=== PATIENT | female | born 1960 | race Caucasian/White ===

== ENCOUNTER → 2018-11-30 | Outpatient (CLI) | payer BC ==
[2018-11-30 12:03] LABS: HCT 42.7 % (34.0-46.0); HGB 13.8 gm/dL (11.4-16.0); MCH 28.6 pg (25.0-35.0); MCHC 32.3 g/dL (31.0-37.0); MCV 88.5 fL (80.0-100.0); Mean Platelet Volume 6.7; Platelet Count 225 k/uL (150-450); RBC 4.82 m/uL (3.80-5.40); WBC 6.3 k/uL (3.8-10.6)
[2018-11-30 12:13] LABS: INR 0.9 (<1.2); Partial Thromboplastin Time 24.9 sec (22.0-30.0); Prothrombin Time 9.9 sec (9.0-12.0)
[2018-11-30 12:17] LABS: ALT 31 U/L (9-52); AST 17 U/L (14-36); Albumin 4.5 g/dL (3.5-5.0); Alkaline Phosphatase 69 U/L (38-126); Anion Gap 7 mmol/L; Blood Urea Nitrogen 21 mg/dL (7-17); Calcium 9.9 mg/dL (8.4-10.2); Carbon Dioxide 30 mmol/L (22-30); Chloride 105 mmol/L (98-107); Glucose 97 mg/dL (74-99); Potassium 4.5 mmol/L (3.5-5.1); Sodium 142 mmol/L (137-145); Total Bilirubin 0.5 mg/dL (0.2-1.3); Total Protein 7.4 g/dL (6.3-8.2)
[2018-11-30 12:29] LABS: Appearance,Urine Clear (Clear); Bilirubin,Urine Negative (Negative); Blood,Urine Negative (Negative); Color,Urine Light Yellow; Glucose,Urine (UA) Negative (Negative); Ketones,Urine Negative (Negative); Leukocyte Esterase,Urine Negative (Negative); Nitrite,Urine Negative (Negative); Protein,Urine Negative (Negative); Specific Gravity,Urine 1.008 (1.001-1.035); Urobilinogen,Urine <2.0 mg/dL (<2.0)
== END | disposition home or self-care (01) ==
LOC: LABPAT 11:18
PROVIDERS: ATTEND Orthopaedic Surgery
DX: Z01.812 Encounter for preprocedural laboratory examination (principal); M16.12 Unilateral primary osteoarthritis, left hip
CPT/HCPCS: 36415; 80053; 81003; 85027; 85610; 85730; 87070

== ENCOUNTER 2018-12-09 09:02 | Inpatient (IN) | payer BC ==
[2018-11-29 15:26] VITALS: BMI 33.3
[~2018-12-09 09:02] MED LIST: ACETAMINOPHEN TAB 500 MG TAB PO ONE; DEXAMETHASONE SOD PHOSPHATE 10 MG/ML 1 ML VIAL IV ONE; HYDROmorphone 0.5 MG/0.5 ML SYRINGE IVP PRN; MELOXICAM 7.5 MG TAB PO ONE; MORPHINE SULFATE 4 MG/ML SYRINGE IV PRN; ONDANSETRON 4 MG/2 ML VIAL IVP ONE; TRANEXAMIC ACID 1,000 MG in SODIUM CHLORIDE 0.9% 100 ML IVPB ONE; ceFAZolin IN SWFI 2 GM/20 ML SYRINGE IVP ONE
[2018-12-09] MEDS ORDERED: ROPIVACAINE 246.25 MG, EPINEPHrine 0.5 MG, KETOROLAC 30 MG, cloNIDine HCL/PF 80 MCG, WA... MISCELLANE ONE ×10 (12:11→12:46)
[2018-12-09] MEDS: LACTATED RINGERS 1,000 ML IV SCH ×3 (12:47→18:05)
[2018-12-09] MEDS ORDERED: LIDOCAINE 1% 20 ML VIAL (10MG/ML) FOR IV START INTRADERMA ONE (12:47)
[2018-12-09] MEDS ORDERED: HYDROcodone/APAP 5-325MG 1 EACH TAB PO PRN (12:48)
[2018-12-09] MEDS ORDERED: HYDROmorphone 1 MG/ML 1 ML SYRINGE IVP PRN (12:48)
[2018-12-09] MEDS ORDERED: ONDANSETRON 4 MG/2 ML VIAL IVP PRN (12:48)
[2018-12-09] MEDS ORDERED: hydrOXYzine PAMOATE 25 MG CAP PO PRN (12:48)
[2018-12-09] MEDS ORDERED: MAGNESIUM HYDROXIDE 2,400 MG/10 ML CUP PO PRN (12:48)
[2018-12-09] MEDS ORDERED: DEXAMETHASONE SOD PHOS (MDV) 100 MG/10 ML VIAL IV ONE (12:48)
[2018-12-09] MEDS ORDERED: NALOXONE 0.4 MG/ML 1 ML VIAL IV PRN (12:48)
[2018-12-09] MEDS ORDERED: ONDANSETRON 4 MG/2 ML VIAL IVP ONE (12:48)
[2018-12-09] MEDS ORDERED: HYDROmorphone 0.5 MG/0.5 ML SYRINGE IVP PRN ×2 (12:48)
[2018-12-09] MEDS ORDERED: DIAZEPAM 5 MG TAB PO PRN (12:48)
[2018-12-09] MEDS ORDERED: HEPARIN SODIUM,PORCINE 10,000 UNIT/ML 1 ML VIAL ONE (13:34)
[2018-12-09] MEDS ORDERED: ePHEDrine SULFATE/0.9% NACL/PF 50 MG/5 ML SYRINGE IV ONE (13:34)
[2018-12-09] MEDS ORDERED: PROPOFOL 10 MG/ML 20 ML VIAL IV ONE (13:34)
[2018-12-09] MEDS ORDERED: SODIUM CHLORIDE 0.9% IRRIG 1,000 ML BTL IRRIGATION ONE (13:34)
[2018-12-09] MEDS ORDERED: SODIUM CHLORIDE 0.9% 100 ML BAG ONE (13:34)
[2018-12-09] MEDS ORDERED: PHENYLEPHRINE-0.9% NACL SYG 1 MG/10 ML SYRINGE ONE (13:34)
[2018-12-09] MEDS ORDERED: TRANEXAMIC ACID 1,000 MG/10 ML VIAL ONE (13:34)
[2018-12-09] MEDS ORDERED: LACTATED RINGERS 1,000 ML IV ONE (14:26)
[2018-12-09] MEDS ORDERED: ceFAZolin 3,000 MG in SODIUM CHLORIDE 0.9% IRRIGATIO 3,000 ML IRRIGATION ONE (14:26)
--- NOTE | 2018-12-09 15:09 | P.OP ---
Date of Procedure: 12/09/18 Preoperative Diagnosis: Severe osteoarthritis left hip Postoperative Diagnosis: Severe osteoarthritis left hip Procedure(s) Performed: Left total hip arthroplasty with a direct anterior approach Implants: Wade and nephew Polarstem size 3 standard Wade & Nephew R3, 3 hole acetabular shell, 52 mm Wade & Nephew reflection 6.5 mm cancellus screw, 20 mm 2 Wade & Nephew R3, XLPE 20 acetabular liner Wade & Nephew Oxinium femoral head 36 m, -3 All components were press-fit. The articulation is Oxinium on polyethylene. Anesthesia: spinal Surgeon: Andres Castro Advanced Clinical Specialist #1: Nettie Lima Estimated Blood Loss (ml): 150 (65 mL returned with Cell Saver) Pathology: other (Femoral head) Condition: stable Disposition: PACU Indications for Procedure: After failure of conservative treatment we discussed the surgical and nonsurgical treatment options at length. Patient wishes to proceed with a total hip arthroplasty with a direct anterior approach. Complications specific to this procedure were discussed at length, including but not limited to infection, leg length discrepancy, dislocation, and nerve injury. Patient is aware of all these complications and informed consent was obtained Operative Findings: The operative findings are consistent with severe osteoarthritis of the left hip Description of Procedure: Patient was seen and evaluated in the preoperative area, consent was reviewed, and the surgical site was marked with a skin marker. Patient was then brought to the operating room and given prophylactic antibiotics intravenously. 1 g of Tranexamic acid was also given. A spinal anesthetic was administered by the anesthesia department. The patient was then placed on the Lincoln table with the bony prominences well-padded. The hip area was then prepped and draped in usual sterile fashion. A universal timeout was then performed, which confirmed the patient's name, surgical site, ALLERGIES, and procedure being performed. Next the incision site was located at 1 cm distal and 1 cm lateral to the anterior superior iliac spine. The skin and subcutaneous tissues were sharply incised. Incision was carefully dissected down to the fascia overlying the tensor fascia rose mary muscle. This fascia was then incised in line with the incision. Next, using blunt finger dissection, the tensor fascia rose mary muscle was dissected off its investing fascia. The muscle was then carefully retracted laterally with a cobra retractor over the lateral neck of the femur. Next, the circumflex vessels were identified and cauterized using the AquaMantis device. The anterior hip capsule was then exposed. The capsule was then opened and an inverted T fashion. Cobra retractors were then placed intracapsularly. The proximal femur was then visu alized. The femoral neck was then osteotomized appropriate level above the lesser trochanter. Small amount of traction was placed with the Lincoln table. A small wedge of bone was then removed from the remaining femoral head. Next, using a corkscrew femoral head was easily removed from the acetabulum. On gross visual inspection, the femoral head had complete loss of articular cartilage in multip le periarticular osteophytes. Attention was then turned to the acetabulum. the acetabulum was exposed and any remaining labrum was excised. Sequential reaming of the acetabulum was performed using fluoroscopic guidance. When the appropriate size was reached, a trial was then placed. The position and fit of the trial was checked with fluoroscopy. The trial was then removed. Then, using fluoroscopic guidance, the final implant was impacted at 20 of anteversion and 40 of abduction, and fully seated in the acetabulum. 2 screws were then placed in the acetabulum. Again fluoroscopy was used to check position of the screws. Next, the liner was then impacted, with a 20 elevated liner located in the anterior superior quadrant. Component locking was confirmed. Attention was then directed to the femur. With the aid of the Lincoln table, the femur was externally rotated to approximately 130, extended, and abducted under the opposite leg. A side hook was then placed under the proximal femur, and the side hook elevator was used to elevate the proximal femur. Retractors were then placed. A capsular release was performed, as well as a release of the conjoined tendon, which afforded excellent visualization of the proximal femur. Next, a box osteotome was used to lateralize the proximal femur. A general handling supervisor was then used to locate the femoral canal. Sequential broaching was then performed with appropriate size which afforded excellent fixation in the proximal femur. A trial was then placed with appropriate head and neck, and the hip was gently reduced with the aid of the Lincoln table. Fluoroscopy was then used to check position of the components, as well as to ensure equal leg lengths. The hip was then gently dislocated and the trials were then removed. Final implants were then impacted and the hip was again reduced. Final fluoroscopic x-rays confirmed that the components were in anatomic position, as well as equal leg lengths. The hip was also taken through range of motion, and found to be stable. The hip was then copiously irrigated with antibiotic solution with pulsatile lavage. The hip was then irrigated with Irrisept solution. The soft tissues were then injected with a ropivacaine solution, which consisted of 246.25 mg of ropivacaine, 0.5 mg of epinephrine, 30 mg of Toradol, 80 g of clonidine, and 48.45 mL of sterile water, for a total of 100 mL of fluid injected. A second dose of 1 g of Tranexamic acid was also given. the fascia was then closed with 2-0 strata fix suture. The subcutaneous tissue was closed with 3-0 Vicryl. The subcuticular tissue was closed with 3-0 strata fix suture. The skin was then closed with Dermabond glue and a sterile silver dressing. The patient was then transferred to the recovery room in stable condition. The compounding assistant DEJON Orr was required due to the complexity of surgery, and the need for skilled operating room surgical technologist for positioning, draping, exposure, retraction, and closure of the wound.
--- NOTE | 2018-12-09 15:50 | XR ---
EXAMINATION TYPE: XR Hip Limited LT DATE OF EXAM: 12/09/2018 CLINICAL HISTORY: Left hip pain and osteoarthritis. TECHNIQUE: Single AP portable view of left hip is obtained immediately postoperatively. COMPARISON: None. FINDINGS: Metallic hardware from left hip arthroplasty is seen and appears satisfactory in alignment and position. There is evidence of recent surgery with subcutaneous gas noted and overlying soft tis delano swelling. IMPRESSION: Metallic hardware from left hip arthroplasty is satisfactory in position.
[2018-12-09] MEDS: HYDROcodone/APAP 5-325MG 1 EACH TAB PO PRN (19:15)
[2018-12-09] MEDS: SODIUM CHLORIDE 0.9% 1,000 ML IV SCH (20:50)
[2018-12-09] MEDS ORDERED: SENNOSIDES-DOCUSATE SODIUM 1 EACH TAB PO SCH (21:00)
[2018-12-09] MEDS: ASPIRIN 325 MG TAB PO SCH (21:28)
[2018-12-09] MEDS: ceFAZolin IN SWFI 2 GM/20 ML SYRINGE IVP SCH (22:36)
[2018-12-10] MEDS: HYDROcodone/APAP 5-325MG 1 EACH TAB PO PRN ×2 (01:15→07:00)
[2018-12-10] MEDS: ceFAZolin IN SWFI 2 GM/20 ML SYRINGE IVP SCH (06:01)
[2018-12-10 07:52] LABS: Basophils % (A) 0 %; Eosinophils % (A) 0 %; HCT 35.2 % (34.0-46.0); HGB 11.1 gm/dL (11.4-16.0); Lymphocytes # (A) 1.3 k/uL (1.0-4.8); Lymphocytes % (A) 12 %; MCH 27.3 pg (25.0-35.0); MCHC 31.4 g/dL (31.0-37.0); Mean Platelet Volume 6.8; Monocytes # (A) 0.6 k/uL (0-1.0); Monocytes % (A) 6 %; Neutrophils # (A) 8.5 k/uL (1.3-7.7); Neutrophils % (A) 81 %; Platelet Count 197 k/uL (150-450); RBC 4.05 m/uL (3.80-5.40); RDW 14.2 % (11.5-15.5); WBC 10.5 k/uL (3.8-10.6)
[2018-12-10 08:00] VITALS: BP 117/72; PULSE 82; RESP 20; TEMP 97.6
--- NOTE | 2018-12-10 08:07 | XR ---
Limited left hip HISTORY: Left hip arthroplasty 2 intraoperative C-arm images document the procedure.
--- NOTE | 2018-12-10 08:38 | FL ---
Fluoroscopy HISTORY: Hip replacement 53 seconds fluoroscopy time supplied to the referring clinician. 2 intraoperative C-arm images docum ent the procedure. See dictated report from orthopedic surgery.
[2018-12-10] MEDS: SODIUM CHLORIDE 0.9% 1,000 ML IV SCH (08:47)
[2018-12-10] MEDS: ASPIRIN 325 MG TAB PO SCH (08:49)
[2018-12-10] MEDS ORDERED: MELOXICAM 7.5 MG TAB PO SCH (09:00)
--- NOTE | 2018-12-10 09:36 | P.DS ---
Providers Date of admission: 12/09/18 12:17 Expected date of discharge: 12/10/18 Attending physician: Andres Castro Consults: 12/09/18 12:48 Consult Physician Routine Consulting Provider: Terrell Hampton Consult Reason/Comments: medical management Do you want consulting provider notified?: Yes Primary care physician: Cooper Johnson - Discharge Diagnosis(es) (1) Osteoarthritis of left hip Current Visit: Yes Status: Acute (2) Status post total hip replacement, left Current Visit: Yes Status: Acute Hospital Course: This is a 58-year-old female with known history of degenerative arthritis of the left hip. The patient presents for evaluation. After discussion and consideration patient elects to proceed with total hip arthroplasty. The patient is seen preoperatively by Dr. Castro and medically cleared for surgery by their primary care physician. Patient is admitted to [facility] on 12/09/2018 for total hip arthroplasty. The procedures performed without complication or sequelae. The patient is doing well postoperatively. Labs and vital signs are stable on day of discharge. On day of discharge patient's hip incision is healing well. There is minimal erythema. There is no drainage noted at this time. There is minimal soft tissue swelling to the hip and thigh. Patient has full foot and ankle motion without difficulty or pain. Calf is soft and nontender to palpation. Neurovascular status to the left lower extremity is intact. Patient is discharged home in good condition. Opioid start talking form is reviewed and signed at patient bedside. Please see med rec for accurate list of home medications. Plan - Discharge Summary Discharge Rx Participant: Yes New Discharge Prescriptions: New Aspirin 325 mg PO BID #60 tab HYDROcodone/APAP 5-325MG [[place] 5-325] 1 - 2 tab PO Q6HR PRN #56 tab PRN Reason: Pain Sennosides [Senokot] 1 tab PO BID #60 tablet No Action Acetaminophen [Tylenol] 650 mg PO Q6HR PRN PRN Reason: Pain Meloxicam 15 mg PO DAILY amLODIPine [Norvasc] 5 mg PO HS Lisinopril 20 mg PO BID Discharge Medication List Acetaminophen [Tylenol] 650 mg PO Q6HR PRN 11/29/18 [History] Lisinopril 20 mg PO BID 11/29/18 [History] Meloxicam 15 mg PO DAILY 11/29/18 [History] amLODIPine [Norvasc] 5 mg PO HS 11/29/18 [History] Aspirin 325 mg PO BID #60 tab 12/10/18 [Rx] HYDROcodone/APAP 5-325MG [[place] 5-325] 1 - 2 tab PO Q6HR PRN #56 tab 12/10/18 [Rx] Sennosides [Senokot] 1 tab PO BID #60 tablet 12/10/18 [Rx] Follow up Appointment(s)/Referral(s): Andres Castro DO [Doctor of Osteopathic Medicine] - 2 Weeks Activity/Diet/Wound Care/Special Instructions: Weightbearing as tolerated with walker. Leave dressing intact. Dressing may be removed by home care nurse or by patient in 10 days. May shower with dressing on. Please follow-up with [facility] in 2 weeks and call with any questions or concerns, . Discharge Disposition: HOME WITH HOME HEALTH SERVICES
--- NOTE | 2018-12-10 12:34 | P.CONS ---
History of Present Illness - Reason for Consult Consult date: 12/10/18 Medical management Requesting physician: Andres Castro - Chief Complaint Medical management post left hip arthroplasty - History of Present Illness 58-year-old female with PMH of hypertension left hip OA present to [facility] for scheduled surgery. She underwent direct anterior approach left total hip arthroplasty on 12/09/2018. [facility] has been consulted for medical management. Patient reports no complications with her procedure yesterday. Patient complains of left thigh pain described as muscle stretching and spastic, associated at with how she was placed on the OR bed, not related to her left hip incision or movement of hip. She denies any headache, nausea, vomiting, fever, cough, chest pain, shortness of breath, palpitations, changes in urination or bowel habits. Patient does report a history of constipation, has not passed a bowel movement since surgery but is passing gas. She denies any abdominal pain. Review of Systems All systems: negative Past Medical History Past Medical History: Hypertension, Osteoarthritis (OA) History of Any Multi-Drug Resistant Organisms: None Reported Past Surgical History: Hysterectomy Additional Past Surgical History / Comment(s): D&C,pain clinic procedures Past Anesthesia/Blood Transfusion Reactions: No Reported Reaction, Family History of Problems w/ Anesthesia Additional Past Anesthesia/Blood Transfusion Reaction / Comm: no hx blood transfusion,sister has ponv Past Psychological History: No Psychological Hx Reported Smoking Status: Never smoker Past Alcohol Use History: None Reported Past Drug Use History: None Reported - Past Family History Mother Family Medical History: No Reported History Medications and Allergies Home Medications Medication Instructions Recorded Confirmed Type Acetaminophen [Tylenol] 650 mg PO Q6HR PRN 11/29/18 12/09/18 History Lisinopril 20 mg PO BID 11/29/18 12/09/18 History Meloxicam 15 mg PO DAILY 11/29/18 12/09/18 History amLODIPine [Norvasc] 5 mg PO HS 11/29/18 12/09/18 History Aspirin 325 mg PO BID #60 tab 12/10/18 Rx HYDROcodone/APAP 5-325MG [[place] 1 - 2 tab PO Q6HR PRN #56 tab 12/10/18 Rx 5-325] Sennosides [Senokot] 1 tab PO BID #60 tablet 12/10/18 Rx Allergies Allergy/AdvReac Type Severity Reaction Status Date / Time Sulfa (Sulfonamide Allergy Anaphylaxis Verified 12/09/18 13:10 Antibiotics) Physical Exam Vitals: Vital Signs Temp Pulse Resp BP Pulse Ox 12/10/18 07:00 97.6 F 82 20 117/72 98 12/09/18 23:05 98.2 F 91 16 97/62 95 12/09/18 19:15 98.1 F 119 H 17 126/74 95 12/09/18 17:30 97 130/85 100 12/09/18 17:15 94 126/81 100 12/09/18 17:00 100 128/77 100 12/09/18 16:45 94 124/78 99 12/09/18 16:30 93 119/78 100 12/09/18 16:15 92 121/78 100 12/09/18 16:00 97.5 F L 105 H 120/70 100 12/09/18 15:58 98 18 123/65 98 12/09/18 15:46 99 18 123/66 98 12/09/18 15:31 103 H 18 121/63 98 12/09/18 15:21 98.7 F 104 H 18 117/68 98 12/09/18 12:36 97.6 F 91 16 169/87 99 Intake and Output 12/09/18 12/10/18 12/10/18 22:59 06:59 14:59 Intake Total 250 Output Total 350 Balance -100 Intake: IV 250 Output: Urine 350 Other: Voiding Method Toilet # Voids 1 1 General: [non toxic], [no distress], [appears at stated age] Derm: [warm], [dry] Head: [atraumatic], [normocephalic], [symmetric] Eyes: [EOMI], [no lid lag], [anicteric sclera] Mouth: [no lip lesion], [mucus membranes moist] Cardiovascular: [S1S2 reg], [no murmur], [positive DP pulse bilateral] Lungs: [CTA bilateral], [no rhonchi, no rales] , [no accessory muscle use] Abdominal: [soft], [ nontender to palpation], [no guarding], [no appreciable organomegaly] Ext: [no gross muscle atrophy], [no edema], [no contractures] Neuro: [no focal neuro deficits] Psych: [Alert], [oriented], [appropriate affect] Results CBC & Chem 7: 12/10/18 06:56 Labs: Abnormal Lab Results - Last 24 Hours (Table) 12/10/18 Range/Units 06:56 Hgb 11.1 L (11.4-16.0) gm/dL Neutrophils # 8.5 H (1.3-7.7) k/uL Assessment and Plan Assessment: Assessment and Plan 1. Hypertension 2. Constipation 3. Status post left arthroplasty 1. BP 117/72. Continue home medication of amlodipine, lisinopril. Monitor vitals, adjust medications as necessary. 2. Stool softener. 2. Pain management as per orthopedic. Weightbearing as per orthopedic. Plans for PT and OT at home. Will follow Orthopedic recommendations. Thank you for this consult. Patient cleared for discharge home. Advised that she should monitor for bowel movement. Advised of symptoms of bowel obstruction. Will follow with PCP in 1-2 days.
== END 2018-12-10 13:05 | disposition home health service (06) | DRG 470 ==
LOC: 2ORMAIN 12:17 → 4SSUR 15:24
PROVIDERS: ADMIT Orthopaedic Surgery; ATTEND Orthopaedic Surgery
PROC: 30233N0 Transfusion of Autologous Red Blood Cells into Peripheral Vein, Percutaneous Approach (ICD-10-PCS; 2018-12-09)
PROC: 0SRB06A Replacement of Left Hip Joint with Oxidized Zirconium on Polyethylene Synthetic Substitute, Uncemented, Open Approach (ICD-10-PCS; principal; 2018-12-09 13:50)
DX: M16.12 Unilateral primary osteoarthritis, left hip (principal); I10 Essential (primary) hypertension; K59.00 Constipation, unspecified; R63.5 Abnormal weight gain; Z68.33 Body mass index [BMI] 33.0-33.9, adult; Z79.899 Other long term (current) drug therapy; Z90.710 Acquired absence of both cervix and uterus; Z88.2 Allergy status to sulfonamides; Z83.3 Family history of diabetes mellitus; Z82.49 Family history of ischemic heart disease and other diseases of the circulatory system
CPT/HCPCS: 73501; 85025; 86850; 86891; 86900; 86901; 88300